=== PATIENT | male | born 1990 | race Caucasian/White ===

== ENCOUNTER → 2016-09-20 06:51 | Day surgery (SDC) | payer OTHER ==
[~2016-09-20 06:51] MED LIST: Buffered Lidocaine 1% SYR 3ML* 3 ML/SYR SYRINGE INTRADERM ONE; Bupivacaine 0.5% SDV PF* 30 ML VIAL ONE; Dexamethasone IV* 4 MG/ML 1 ML (4 MG) ONE; Famotidine IV* 10 MG/ML 2 ML (20 mg) IV ONE; Famotidine IV* 10 MG/ML 2 ML (20 mg) ONE; KETAMINE HCL* 50 MG/ML 10 ML VIAL ONE; Ketorolac INJ* 15 MG/ML 1 ML VIAL IV PUSH ONE; Ketorolac INJ* 30 MG/ML 1 ML VIAL ONE; Lidocaine 2% PF * 5 ML VIAL ONE; Lidocaine 2% PF* 10 ML AMP ONE; Midazolam* 1 MG/ML 5 ML VIAL (5 MG) ONE; Morphine INJ* 10 MG/ML 1 ML CARPUJECT ONE; Ondansetron INJ* 2 MG/ML VIAL ONE; PROCHLORPERAZINE INJ 5 MG/ML 2 ML VIAL IV PRN; Phenylephrine INJ* 10 MG/ML 1 ML VIAL (10 MG) ONE; Propofol* 10 MG/ML 20 ML BTL IV PUSH ONE; ceFAZolin 2 GM PREMIX (*) 2 GM/50 ML BAG IVPB ONE; fentaNYL* 50 MCG/ML 2 ML VIAL (100 MCG VIAL) ONE; oxyCODONE TAB* 5 MG TAB ONE; oxyCODONE/Acetamin 5/325 MG* TAB PO PRN
[2016-09-20] MEDS: Morphine INJ* 2 MG/ML 1 ML CARPUJECT IV PRN ×2 (11:30→11:47)
[2016-09-20] MEDS: fentaNYL* 50 MCG/ML 2 ML VIAL (100 MCG VIAL) IV PRN ×4 (11:31→11:47)
[2016-09-20 13:27] VITALS: BP 143/81
--- NOTE | 2016-09-20 22:55 | OP ---
DATE OF SURGERY: 09/20/16 [facility] DATE OF : 88 ATTENDING SURGEON: Nilay Obrien MD CONSOLE OPERATOR: Ale Calderon PA-C ANESTHESIOLOGIST: Scar Briones MD ANESTHESIA: General PRE-OP DIAGNOSIS: Chronic Lisfranc fracture dislocation, right midfoot. POST-OP DIAGNOSIS: Chronic Lisfranc fracture dislocation, right midfoot. OPERATIVE PROCEDURE: Right three-corner fusion with tibial bone graft. DESCRIPTION OF PROCEDURE: The patient was taken to the operating room where longitudinal incision was made over the base of the first metatarsal to the first cuneiform. Full thickness flap raised laterally to rule out visualization of the base of the second metatarsal, second cuneiform and the first cuneiform. The articulations were exposed by capsulotomy and lamina dwarf tree grower. We prepared for arthrodesis at the base of the second metatarsal medially and the lateral portion of the first cuneiform and the medial portion of the second cuneiform and then the Hintermann retractor was used to open up the base of the second TMT joint for preparation as well with the small power darwin. We harvested some cancellous graft from the proximal tibia at Gerdy's tubercle. Through a 3 cm incision, we split the iliotibial band and opened the tubercle with the small power darwin. Cancellous bone was harvested with a small curette. We packed some bone graft chips in this area proximally to repair the defect closing the periosteum with 2-0 Vicryl and Monocryl for the skin. This allograft and small amount of powdered allograft were then placed between the second TMT joint and the first intercuneiform joint and the second metatarsals to first cuneiform joints. We then compressed these together with point of reduction clamps and 3.5 mm cortical screws were used to fix the first cuneiform over to the base of the second metatarsal the first of the second cuneiform. X-rays showed good compression and alignment obtained. We then fixed dorsally with a Synthes midfoot plate. This was 4-hole T-plate fixed with dorsal to plantar 2.7 mm locking screws. This was over the base of the second TMT. X-rays intraoperatively showed satisfactory position of all the hardware so the wound was closed with 2-0 Vicryl and nylon for the skin and a compression dressing plaster splint. [id number]/[facility] #: [id number] [facility]
--- NOTE | 2016-09-20 23:10 | RAD ---
CPT II Codes: 6045F INDICATION: Right foot fusion. Fluoroscopic services provided for referring physician. There is fusion of the first cuneiform to the second metatarsal and the second cuneiform to the second metatarsal. Approximately 8 seconds of fluoroscopy time was used. IMPRESSION: Fluoroscopic services provided for referring physician.
== END | disposition home or self-care (01) ==
LOC: OR 06:51
PROVIDERS: ATTEND Orthopaedic Surgery
DX: S93.324D Dislocation of tarsometatarsal joint of right foot, subsequent encounter (principal); Z87.891 Personal history of nicotine dependence; X58.XXXD Exposure to other specified factors, subsequent encounter; Y92.9 Unspecified place or not applicable
CPT/HCPCS: 76000; A9270-GY; C1713; C1776; J0690; J1100; J1885; J2001; J2250; J2270; J2405; J2704; J3010

== ENCOUNTER → 2017-02-15 | Emergency (ER) | payer OTHER ==
[~2017-02-15] MED LIST changes: -Buffered Lidocaine 1% SYR 3ML* 3 ML/SYR SYRINGE INTRADERM ONE; -Bupivacaine 0.5% SDV PF* 30 ML VIAL ONE; -Dexamethasone IV* 4 MG/ML 1 ML (4 MG) ONE; -Famotidine IV* 10 MG/ML 2 ML (20 mg) IV ONE; -Famotidine IV* 10 MG/ML 2 ML (20 mg) ONE; -KETAMINE HCL* 50 MG/ML 10 ML VIAL ONE; -Ketorolac INJ* 15 MG/ML 1 ML VIAL IV PUSH ONE; +Ketorolac INJ* 30 MG/ML 1 ML VIAL IV PUSH ONE; -Ketorolac INJ* 30 MG/ML 1 ML VIAL ONE; -Lidocaine 2% PF * 5 ML VIAL ONE; -Lidocaine 2% PF* 10 ML AMP ONE; -Midazolam* 1 MG/ML 5 ML VIAL (5 MG) ONE; -Morphine INJ* 10 MG/ML 1 ML CARPUJECT ONE; +NS 0.9% 1000 ML* 1,000 ML IV ONE; -Ondansetron INJ* 2 MG/ML VIAL ONE; +Orphenadrine Citrate IV* 30 MG/ML 2 ML VIAL IV ONE; -PROCHLORPERAZINE INJ 5 MG/ML 2 ML VIAL IV PRN; -Phenylephrine INJ* 10 MG/ML 1 ML VIAL (10 MG) ONE; -Propofol* 10 MG/ML 20 ML BTL IV PUSH ONE; +ValACYclovir (*) 1 GM TAB PO SCH; -ceFAZolin 2 GM PREMIX (*) 2 GM/50 ML BAG IVPB ONE; -fentaNYL* 50 MCG/ML 2 ML VIAL (100 MCG VIAL) ONE; -oxyCODONE TAB* 5 MG TAB ONE; -oxyCODONE/Acetamin 5/325 MG* TAB PO PRN; +predniSONE TAB* 20 MG PO ONE
[2017-02-15 08:14] VITALS: BP 130/65
[2017-02-15 09:00] LABS: Hematocrit 46 % (42-52); Hemoglobin 15.1 g/dl (14.0-18.0); Mean Corpuscular HGB Conc 33 g/dl (31-36); Mean Corpuscular Hemoglobin 29 pg (27-31); Mean Corpuscular Volume 88 fL (80-94); Mean Platelet Volume 10 um3 (7.4-10.4); Red Blood Count 5.25 10^6/ul (4.0-5.4); Red Cell Distribution Width 13 % (10.5-15); White Blood Count 8.5 10^3/ul (3.5-10.8)
[2017-02-15 09:12] LABS: Urine Bilirubin Negative (Negative); Urine Glucose Negative (Negative); Urine Nitrite Negative (Negative)
--- NOTE | 2017-02-15 09:14 | RAD ---
INDICATION: Facial pain. Left-sided weakness. Also left-sided flank pain. Possible renal stone. COMPARISON: None TECHNIQUE: Noncontrast axial source images were acquired from the skull base to the vertex. FINDINGS: Ventricles/sulci: The ventricles and cisterns are normal in size and configuration for age. Brain parenchyma: There is no focal parenchymal finding, evidence of intracranial mass, or intracranial mass effect. Intracranial hemorrhage:None. Extra-axial spaces: There are no abnormal extra axial fluid collections or evidence of extra-axial mass. Calvarium: There is no calvarial fracture or other calvarial abnormality. Scalp: There is no evidence of scalp or extracalvarial soft tissue abnormality. Paranasal sinuses/mastoid: The paranasal sinuses and mastoid air cells are clear. Other: None. IMPRESSION: NEGATIVE NONCONTRAST CT EXAMINATION
[2017-02-15 09:15] LABS: Albumin 4.6 g/dL (3.2-5.2); Calcium 9.5 mg/dL (8.6-10.3); EGFR African American 107.8 (>60); EGFR Non-African American 83.8 (>60); Globulin 2.8 g/dL (2-4); Potassium 4.2 mmol/L (3.5-5.0); Total Protein 7.4 g/dL (6.4-8.9)
--- NOTE | 2017-02-15 09:24 | RAD ---
INDICATION: Right flank abdominal pain. COMPARISON: There are no prior studies available for comparison. TECHNIQUE: A CT scan of the abdomen and pelvis was performed without intravenous or oral contrast. Contiguous axial sections were obtained from the lung bases through the symphysis pubis. Images were reconstructed in the coronal and sagittal planes. FINDINGS: The lung bases are clear. No pleural effusion is present. The liver and spleen are within normal limits in size without significant focal abnormality on this noncontrast study. No calcified gallstones are seen. The pancreas appears to be within normal limits in size. The adrenal glands and kidneys are normal in size. There is a 2 mm nonobstructing calculus in the lower pole of the left kidney. No hydronephrosis is seen. No ureteral or bladder calculi are noted. The aorta is normal in caliber without significant calcific plaque. There is a retroaortic left renal vein. No significant enlarged retroperitoneal lymph nodes are seen. The stomach, small and large bowel appear nondistended. The appendix is within normal limits. There is mild sigmoid diverticulosis without evidence for diverticulitis. No free intraperitoneal air or fluid is seen. No significant focal osseous abnormality is seen. IMPRESSION: 1. NO EVIDENCE FOR ACUTE FINDING OR CAUSE FOR THE PATIENT'S ABDOMINAL PAIN IS SEEN. 2. SMALL NONOBSTRUCTING LEFT RENAL CALCULUS.
--- NOTE | 2017-02-16 15:35 | ED ---
Pollo Nelson Auryana, scribed for Mike Egan MD on 02/15/17 at 0756 . Neurological HPI - HPI Summary HPI Summary: 26 year old male presents with sudden right sided flank pain starting 6 days ago. He reports that the pain is a constant 6/10. He also reports increased frequency/urgency but denies any burning with urination. He also c/o left sided facial paralysis/numbness with left arm numbness -patient reports that he is unable to close his left eye. He denies any photophobia or any neck pain. He states that he has been seen by Dr. Fagan who requested further blood work after initial blood work showed elevated inflammatory markers- reports he had labs drawn yesterday. Patient states that he has had the same facial neurological deficits with past episode of viral meningitis. PMHx is significant for viral meningitis, and right mid-arch fusion. 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 - History of Current Complaint Chief Complaint: EDNeurologicalDeficit Stated Complaint: RIGHT FLANK PAIN Time Seen by Provider: 02/15/17 07:52 Hx Obtained From: Patient Onset/Duration: Sudden Onset - of flank pain - 6 days ago; left sided facial weakness this morning, Started hours ago, Started days ago - 6 Timing: Constant Onset Severity: Moderate Current Severity: Moderate Neurological Deficit Location: Facial - weakness and numbness, LUE - weakness Pain Intensity: 6 - flank pain Pain Scale Used: 0-10 Numeric Character: Weak - LUE, Numbness/Tingling - left side of face numbness, Paralysis - of left side of face Associated Signs and Symptoms: Positive: Numbness - left side of face. Negative : Pain - no neck pain, Neck Pain/Stiffness Similar Episode/Dx as: SEE HPI - Allergy/Home Medications Allergies/Adverse Reactions: Allergies Allergy/AdvReac Type Severity Reaction Status Date / Time No Known Allergies Allergy Verified 09/20/16 07:16 PMH/Surg Hx/FS Hx/Imm Hx Endocrine/Hematology History: Denies: Hx Anticoagulant Therapy Cardiovascular History: Denies: Hx Pacemaker/ICD Musculoskeletal History: Reports: Other Musculoskeletal History - Rt wrist fx 10 yrs ago Sensory History: Denies: Hx Contacts or Glasses, Hx Hearing Aid Opthamlomology History: Denies: Hx Contacts or Glasses Neurological History: Reports: Other Neuro Impairments/Disorders - meningitis August 2015 Psychiatric History: Reports: Hx Anxiety - no meds this time - uses nightly marijuana Denies: Hx Panic Disorder - Surgical History Surgery Procedure, Year, and Place: dental bridge - 2012 [facility]. viral meningitis - aug 2015 - states "was sedated during admit" Hx Anesthesia Reactions: No Infectious Disease History: Denies: Traveled Outside the [place] in Last 30 Days - Family History Known Family History: Positive: Other - REPORTS "KIDNEY PROBLEMS" IN UNCLE; STROKE - Social History Alcohol Use: Occasionally Alcohol Amount: 5-6 per week Substance Use Type: Reports: Marijuana Substance Use Comment - Amount & Last Used: nightly marijuana - states "uses for anxiety" Smoking Status (MU): Former Smoker Type: Cigarettes Amount Used/How Often: 1 pack every 3-4 days Length of Time of Smoking/Using Tobacco: 6 years Have You Smoked in the Last Year: No Review of Systems Constitutional: Negative Negative: Fever Eyes: Negative ENT: Negative Cardiovascular: Negative Respiratory: Negative Gastrointestinal: Negative Positive: frequency, flank pain - right , urgency. Negative: burning Musculoskeletal: Negative Skin: Negative Positive: Weakness - left side of face, Numbness - left arm Psychological: Normal All Other Systems Reviewed And Are Negative: Yes Physical Exam - Summary Physical Exam Summary: VITAL SIGNS: Reviewed. GENERAL: ~Patient is a well-developed and nourished male who is lying comfortable in the stretcher. ~Patient is not in any acute respiratory distress. HEAD AND FACE: No signs of trauma. ~No ecchymosis, hematomas or skull depressions. No sinus tenderness. EYES: PERRLA, EOMI x 2, No injected conjunctiva, no nystagmus. NO PHOTOPHOBIA. EARS: Hearing grossly intact. Ear canals and tympanic membranes are within normal limits. MOUTH: Oropharynx within normal limits. NECK: Supple, trachea is midline, no adenopathy, no JVD, no carotid bruit, no c- spine tenderness, neck with full ROM. No meningeal signs, no Kernig's or brudzinskis signs. NO NECK PAIN. NO MENINGEAL SIGNS. CHEST: Symmetric, no tenderness at palpation LUNGS: Clear to auscultation bilaterally. No wheezing or crackles. CVS: Regular rate and rhythm, S1 and S2 present, no murmurs or gallops appreciated. ABDOMEN: Soft. Slight right CVA tenderness. No signs of distention. No rebound no guarding, and no masses palpated. EXTREMITIES: FROM in all major joints, no edema, no cyanosis or clubbing. NEURO: Alert and oriented x 3. Left sided facial weakness - unable to wrinkle left side of forehead and unable to close left eye. No other acute neurological deficits. Speech is normal and follows commands. SKIN: Dry and warm Triage Information Reviewed: Yes Vital Signs On Initial Exam: Initial Vitals Temp Pulse Resp BP Pulse Ox 97.5 F 69 18 135/83 100 02/15/17 07:51 02/15/17 07:51 02/15/17 07:51 02/15/17 07:51 02/15/17 07:51 Vital Signs Reviewed: Yes Diagnostics - Vital Signs Vital Signs Temp Pulse Resp BP Pulse Ox 02/15/17 07:51 97.5 F 69 18 135/83 100 - Laboratory Result Diagrams: 02/15/17 08:27 02/15/17 08:27 Lab Statement: Any lab studies that have been ordered have been reviewed, and results considered in the medical decision making process. - CT BRAIN CT Interpretation: No Acute Changes CT Interpretation Completed By: Radiologist ABD/PEL CT Interpretation: Positive (See Comments) - IMPRESSION: 1. NO EVIDENCE FOR ACUTE FINDING OR CAUSE FOR THE PATIENT'S ABDOMINAL PAIN IS SEEN. 2. SMALL NONOBSTRUCTING LEFT RENAL CALCULUS. CT Interpretation Completed By: Radiologist Re-Evaluation - Re-Evaluation First Eval Re-Evaluation Time: 10:31 - DISCUSSED LABS AND IMAGING Course/Dx - Course Assessment/Plan: 26 year old male presents with sudden right sided flank pain starting 6 days ago. He reports that the pain is a constant 6/10. He also reports increased frequency/urgency but denies any burning with urination. He also c/o left sided facial paralysis/numbness with left arm numbness -patient reports that he is unable to close his left eye. He denies any photophobia or any neck pain. He states that he has been seen by Dr. Fagan who requested further blood work after initial blood work showed elevated inflammatory markers - reports he had labs drawn yesterday. Patient states that he has had the same facial neurological deficits with past episode of viral meningitis. PMHx is significant for viral meningitis, and right mid-arch fusion. 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 Patient has no meningeal signs, no neck pain, and no photophobia. Test results without any significant abnormalities except for CRP 13. UA- negative. HIV nonreactive. CT BRAIN - NAD. CT ABD/PEL IMPRESSION: 1. NO EVIDENCE FOR ACUTE FINDING OR CAUSE FOR THE PATIENT'S ABDOMINAL PAIN IS SEEN. 2. SMALL NONOBSTRUCTING LEFT RENAL CALCULUS. 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 The CT ABD/PEL was done to r/o a kidney stone. CT ABD/PEL was negative; therefore I believe that the pain is coming from a musculoskeletal origin. The patient was give IV fluids , Toradol, and Norflex for the back pain and his symptoms improved. Therefore the patient will be discharged home with follow up with PCP. - Diagnoses Provider Diagnoses: Dixon's palsy, Back pain Discharge - Discharge Plan Condition: Stable Disposition: HOME Prescriptions: Methocarbamol [Robaxin-750 MG TAB] 750 mg PO TID #9 tab Naproxen TAB* [Naprosyn 250 mg TAB*] 500 mg PO Q8H PRN #20 tab PRN Reason: Pain ValACYclovir (*) [Valtrex 1 GM(*)] 1 gm PO TID #21 tab predniSONE TAB* [Deltasone TAB*] 40 mg PO DAILY #8 tab Patient Education Materials: Dixon Palsy (ED), Acute Low Back Pain (ED) Referrals: [facility]ERR[facility] [Outside] - 2 Days The documentation as recorded by the Pollo louis Auryana accurately reflects the service I personally performed and the decisions made by me, Mike Egan MD.
[2017-02-17 17:08] LABS: Lyme Disease IgG Ab WB Negative (Negative)
== END | disposition home or self-care (01) ==
LOC: ED 07:48
DX: G51.0 Bell's palsy (principal); M54.9 Dorsalgia, unspecified; R10.84 Generalized abdominal pain; R53.1 Weakness; Z87.891 Personal history of nicotine dependence
CPT/HCPCS: 36415; 70450; 74176; 80053; 81003; 82550; 83605; 83690; 83735; 85025; 86140; 86617; 86618; 86703; 96374; 96375; 99284; A9270-GY; J1885; J2360; J7512